=== PATIENT | male | born 1970 | race Caucasian/White ===

== ENCOUNTER → 2024-01-28 11:36 | Outpatient (CLI) | payer OTHER, SELFPAY | PROVIDERS: Referring Provider Chiropractor; Visit Provider Chiropractor | DX: R06.02 Shortness of breath (principal); Z87.891 Personal history of nicotine dependence; Z86.16 Personal history of COVID-19 | CPT/HCPCS: 94060 ==

== ENCOUNTER 2025-03-30 13:11 | Day surgery (SDC) | payer OTHER, SELFPAY ==
--- NOTE | 2025-03-30 07:05 | P.HP_ITS ---
History of Present Illness
--- NOTE | 2025-03-30 07:05 | PM.HP.IH.1 ---
History of Present Illness History of Present Illness Date Patient Seen: 03/30/25 Time Patient Seen: 07:05 Chief complaint: Dx Colonoscopy w/poss bx Narrative: Patient presents today for screening colonoscopy. [facility] Social History (Updated 02/22/25 @ 16:00 by Robin Villanueva MA) marital status: household members: spouse occupational status: previously employed and disabled Previous occupational history: Disabled Vet Meds Home Medications and Allergies Home Medications ?Medication ?Instructions ?Recorded ?Confirmed ?Type albuterol sulfate 90 mcg/actuation 2 puff inhalation Q4-6H PRN 02/22/25 02/22/25 History aerosol inhaler atorvastatin 10 mg tablet 10 mg PO DAILY 02/22/25 02/22/25 History azelastine 137 mcg (0.1 %) nasal 1 spray intranasal BID 02/22/25 02/22/25 History spray cholecalciferol (vitamin D3) 25 25 mcg PO DAILY 02/22/25 02/22/25 History mcg (1,000 unit) capsule darunavir 600 mg tablet 600 mg PO BID 02/22/25 02/22/25 History doravirine 100 mg tablet 100 mg PO DAILY 02/22/25 02/22/25 History lamivudine 300 mg tablet 300 mg PO DAILY 02/22/25 02/22/25 History losartan 25 mg tablet 25 mg PO DAILY 02/22/25 02/22/25 History omeprazole 20 mg capsule,delayed 20 mg PO DAILY 02/22/25 02/22/25 History release potassium chloride 20 mEq 20 meq PO DAILY 02/22/25 02/22/25 History tablet,extended release raltegravir 400 mg tablet 400 mg PO BID 02/22/25 02/22/25 History ritonavir 100 mg capsule 100 mg PO BID 02/22/25 02/22/25 History terbinafine HCl 250 mg tablet 250 mg PO DAILY 02/22/25 02/22/25 History sodium,potassium,mag sulfates 17.5 See Rx Instructions PO .COMPLEX 02/23/25 Rx gram-3.13 gram-1.6 gram oral soln #354 mL (Suprep Bowel Prep Kit) Allergies Allergy/AdvReac Type Severity Reaction Status Date / Time gabapentin Allergy blood Verified 02/22/25 15:48 pressure drops niacin Allergy Hives Verified 02/22/25 15:48 Sulfa (Sulfonamide Allergy hives Verified 02/22/25 15:48 Antibiotics) novocaine Allergy blisters Uncoded 02/22/25 15:48 pregablin Allergy blood Uncoded 02/22/25 15:48 pressure drops Exam Narrative Exam Narrative: Const General: comfortable Orientation: alert and oriented x3 Resp Effort & Inspection: normal respiratory effort and able to speak in complete sentences Cardio Rate: regular rate GI Palpation: soft (NT) Extrem General: no pedal edema and no calf tenderness Assessment & Plan Assessment and plan (1) Encounter for screening colonoscopy: Status: Acute Plan Plan screening colonoscopy, possible biopsy. The risks, benefits and options regarding the procedure were explained to the patient in detail. Risk discussion included but not limited to: bleeding, perforation, missed lesion, unable to reach cecum. The patient was encouraged to ask questions and they were answered to their satisfaction. The patient understands and is agreeable to proceed. Time-Based Coding :: [TOTAL MINUTES] spent with patient and on the chart (including review of chart, obtaining history, exam, reviewing outside data, placing orders, documenting exam and treatment plan, and counseling patient) on [DATE]. [employer] Document charge(s): Yes Charge Codes Inpatient/observation care including admit and discharge same day: [id number]
[2025-03-30 13:38] VITALS: BP 120/84; PULSE 84; RESP 16; TEMP 36.3; O2SAT 95
[2025-03-30] MEDS: LACTATED RINGERS 1,000 ML 42 ML IV (13:45)
--- NOTE | 2025-03-30 15:01 | P.OP.COLON_ITS ---
Operative Date/Time/Diagnoses
--- NOTE | 2025-03-30 15:01 | PM.OP.COLON ---
Operative Date/Time/Diagnoses Date of procedure: 03/30/25 Time of procedure: 15:28 Pre-op diagnosis: H/O polyps, weight loss, RLQ pain, +FH colon cancer paternal grandfather Post-op diagnosis: other (Polyps, diverticulosis) Procedure & Clinicians Study performed: Colonoscopy with polypectomy Same procedure(s) as scheduled: Yes Indications: 54yo M, h/o polyps, +FH, weight loss, RLQ pain Surgeon: Cam Finn Anesthesia Type: MAC +/- Procedure Notes SCOAP/Timeout: Performed Procedure in detail: Colonoscopy Patient placed in left lateral recumbent position. Time out was performed. Procedural sedation was administered by anesthesia. Examination began with a thorough inspection of the perianal area. There was no evidence of fissures, fistulae, external hemorrhoids or cutaneous malignancy. The colonoscope was then placed into the rectum and the lumen was insufflated with carbon dioxide. The scope was carefully advanced forward. Ultimately the cecum was intubated and confirmed by identification of the ileocecal valve, the appendiceal orifice and the confluence of the taenia. The scope was then slowly withdrawn examining the colon thoroughly in all directions. In the rectum, retroflexion of the scope was performed for inspection of the distal rectum and anal canal. ?Significant colonoscopy findings: ?1. Quality of the preparation-good, [place] 2-3, improved with irrigation/suction ?2. Two sessile polyps 5mm, benign appearing, removed with cold snare and retrieved for pathology; one at 80cm, one at 100cm 3. Sigmoid diverticulosis Scope withdrawal time: 12 minutes Findings: divertiulosis and polyp(s) Specimen(s): other (polyps) Estimated Blood Loss: 5 Complications: none Impression: Colon polyps Diverticulosis Post-procedure Recommendations: Colonoscopy in 10 years Plan for aftercare: PACU then home Follow up: as needed Disposition: PACU
[2025-03-30 15:27] VITALS: BP 100/58; PULSE 94; RESP 21; TEMP 36.2; O2SAT 96
[2025-03-30 15:34] VITALS: BP 110/65; PULSE 87; RESP 16; O2SAT 96
[2025-03-30 15:37] VITALS: BP 120/77; PULSE 82; RESP 16; O2SAT 94
== END 2025-03-30 15:47 | disposition home or self-care (01) ==
PROVIDERS: PCP Internal Medicine; Referring Provider Surgery; Visit Provider Surgery
PROC: 0DJD8ZZ Inspection of Lower Intestinal Tract, Via Natural or Artificial Opening Endoscopic (ICD-10-PCS; CPT 45378; principal; 2025-03-30 14:15)
DX: R10.31 Right lower quadrant pain (principal); R63.4 Abnormal weight loss; Z80.0 Family history of malignant neoplasm of digestive organs; Z86.0100 Personal history of colon polyps, unspecified; K57.30 Diverticulosis of large intestine without perforation or abscess without bleeding; D12.6 Benign neoplasm of colon, unspecified
CPT/HCPCS: 45385; J2250; J2704; J7120